=== PATIENT | female | born 1930 | race Caucasian/White ===

== ENCOUNTER → 2016-07-11 | Outpatient (CLI) | payer MEDICARE, OTHER ==
[~2016-07-11] MED LIST: ATOR40TA2 PO; BISO1TAB6 PO; CIME200T39 PO; DOXA1TAB2 PO; LVT.1T PO; PANT40TA2 PO
== END ==
LOC: RAD 12:02
PROVIDERS: ATTEND Family Medicine
DX: I50.9 Heart failure, unspecified (principal); I10 Essential (primary) hypertension
CPT/HCPCS: 93306